=== PATIENT | male | born 1975 | race Caucasian/White ===

== ENCOUNTER 2023-02-18 22:10 | Emergency (ER) | payer BC ==
[2023-02-18 22:29] VITALS: BP 124/92
[2023-02-18 22:47] VITALS: PULSE 201
[2023-02-18] MEDS ORDERED: Adenosine 6 MG/2 ML SDV IVPUSH STA (22:55)
[2023-02-18 23:03] LABS: BASOPHILS ABSOLUTE AUTO 0.04 K/mm3 (0.01-0.08); BASOPHILS PERCENT AUTO 0.4 % (0.1-1.2); EOSINOPHILS ABSOLUTE AUTO 0.11 K/mm3 (0.04-0.54); HEMOGLOBIN 16.3 gm/dl (13.7-17.5); IMMATURE GRAN ABSOLUTE AUTO 0.03 K/mm3 (0.00-0.10); IMMATURE GRAN PERCENT AUTO 0.3 % (<=1.0); LYMPHOCYTES ABSOLUTE AUTO 3.51 K/mm3 (1.32-3.57); LYMPHOCYTES PERCENT AUTO 30.8 % (21.8-53.1); MEAN CORPUSCULAR HEMOGLOBIN 30.5 pg (25.7-32.2); MEAN CORPUSCULAR HGB CONC 34.7 g/dl (32.2-35.5); MEAN PLATELET VOLUME 10.6 fl (9.4-12.3); MONOCYTES ABSOLUTE AUTO 1.44 K/mm3 (0.30-0.82); MONOCYTES PERCENT AUTO 12.6 % (5.3-12.2); NEUTROPHILS ABSOLUTE AUTO 6.26 K/mm3 (1.78-5.38); NEUTROPHILS PERCENT AUTO 54.9 % (34.0-67.9); PLATELET COUNT,PLT 292 K/mm3 (163-337); RED BLOOD CELL COUNT 5.34 M/mm3 (4.63-6.08); WHITE BLOOD CELL COUNT,WBC 11.39 K/mm3 (4.23-9.07)
[2023-02-18 23:21] LABS: INR 0.98; PROTHROMBIN TIME 10.5 SECONDS (9.7-12.0)
[2023-02-18 23:22] LABS: D-DIMER QUANTITATIVE 0.2 mg/L (0.19-0.50)
[2023-02-18 23:31] LABS: ALBUMIN 3.8 g/dl (3.4-5.0); ANION GAP 18.8 (5-15); BILIRUBIN TOTAL 0.4 mg/dL (0.2-1.0); CALCIUM 9.5 mg/dL (8.5-10.1); EST CRCL DRUG DOSING (CG) 99.35 mL/min; MAGNESIUM 1.5 mg/dL (1.8-2.4); POTASSIUM,K 3.8 mEq/L (3.5-5.1); PROTEIN TOTAL,TP 7.6 g/dl (6.4-8.2)
[2023-02-18] MEDS ORDERED: Metoprolol Succinate 25 MG Tab.ER PO ONE (23:47)
== END 2023-02-19 00:25 | disposition home or self-care (01) ==
LOC: JD.ED 22:10
DX: I47.1 Supraventricular tachycardia (principal); E11.65 Type 2 diabetes mellitus with hyperglycemia; E83.42 Hypomagnesemia; E78.00 Pure hypercholesterolemia, unspecified; I10 Essential (primary) hypertension; E66.9 Obesity, unspecified; Z68.42 Body mass index [BMI] 45.0-49.9, adult; Z86.16 Personal history of COVID-19; Z87.891 Personal history of nicotine dependence
CPT/HCPCS: 36415; 71045; 80053; 83735; 83880; 84484; 85025; 85379; 85610; 85730; 96374; 99285; J0153; 93010; 99284

== ENCOUNTER 2024-02-04 11:32 | Emergency (ER) | payer BC ==
[2024-02-04] MEDS ORDERED: Sodium Chloride 0.9% 10 ML Syringe FLUSH PRN (12:52)
[2024-02-04] MEDS: Sodium Chloride 0.9% 10 ML Syringe FLUSH ONE (13:19)
[2024-02-04] MEDS: Iopamidol 612 MG/ML 100 ML Bottle IVPUSH ONE (13:19)
[2024-02-04 13:48] LABS: BASOPHILS PERCENT AUTO 0.5 % (0.0-1.0); EOSINOPHILS ABSOLUTE AUTO 0.1 K/mm3 (0.0-0.4); EOSINOPHILS PERCENT AUTO 1.5 % (0.0-6.0); HEMATOCRIT 42.2 % (42.0-52.0); HEMOGLOBIN 14.4 gm/dl (14.0-18.0); IMMATURE GRAN ABSOLUTE AUTO 0.04 K/mm3 (0.00-0.05); IMMATURE GRAN PERCENT AUTO 0.5 % (0.0-0.4); LYMPHOCYTES PERCENT AUTO 25.7 % (24.0-44.0); MEAN CORPUSCULAR HEMOGLOBIN 29.9 pg (28.0-32.0); MEAN CORPUSCULAR HGB CONC 34.1 g/dl (32.0-36.0); MEAN CORPUSCULAR VOLUME 87.6 fl (83.0-99.0); MEAN PLATELET VOLUME 10.3 fl (9.4-12.4); MONOCYTES ABSOLUTE AUTO 0.8 K/mm3 (0.0-0.8); MONOCYTES PERCENT AUTO 10.6 % (0.0-8.0); NEUTROPHILS ABSOLUTE AUTO 4.7 K/mm3 (1.8-7.7); NEUTROPHILS PERCENT AUTO 61.2 % (41.0-71.0); PLATELET COUNT,PLT 227 K/mm3 (150-400); RED BLOOD CELL COUNT 4.82 M/mm3 (4.52-5.90); WHITE BLOOD CELL COUNT,WBC 7.75 K/mm3 (3.9-11.3)
[2024-02-04 14:08] LABS: A/G RATIO 1.1 (1-2); ALBUMIN 3.6 g/dl (3.4-5.0); ANION GAP 12.7 (5-15); BILIRUBIN TOTAL 0.3 mg/dL (0.2-1.0); CALCIUM 8.9 mg/dL (8.5-10.1); EST CRCL DRUG DOSING (CG) 98.31 mL/min; POTASSIUM,K 3.7 mEq/L (3.5-5.1); PROTEIN TOTAL,TP 6.9 g/dl (6.4-8.2)
[2024-02-04 14:10] LABS: LACTIC ACID 1.5 mmol/L (0.4-2.0)
[2024-02-04 16:59] VITALS: BP 115/71; PULSE 90
== END 2024-02-04 14:50 | disposition home or self-care (01) ==
LOC: JD.ED 11:32
DX: K62.5 Hemorrhage of anus and rectum (principal); I10 Essential (primary) hypertension; E78.00 Pure hypercholesterolemia, unspecified; E11.9 Type 2 diabetes mellitus without complications; E66.9 Obesity, unspecified; Z68.42 Body mass index [BMI] 45.0-49.9, adult; Z86.16 Personal history of COVID-19; Z79.899 Other long term (current) drug therapy; Z79.82 Long term (current) use of aspirin
CPT/HCPCS: 36415; 74177; 80053; 83605; 83690; 85025; 93005; 99284; J3490; Q9967; 93010

== ENCOUNTER → 2024-05-18 | Day surgery (SDC) | payer BC ==
[~2024-05-18] MED LIST: Ketorolac 15 MG/ML SDV ONE; Lidocaine 1% 4 ML ONE; Lidocaine 1% PF 2 ML SDV ONE; Propofol 200 MG/20 ML SDV ONE; Sodium Chloride 0.9% 10 ML Syringe FLUSH PRN; Sodium Chloride 0.9% 10 ML Syringe FLUSH SCH
[2024-05-18] MEDS: Lactated Ringers 1,000 ML IV SCH (11:00)
[2024-05-18] MEDS: Bupivacaine 0.5% 30 ML SDV ONE (14:28)
[2024-05-18 14:30] VITALS: BP 116/64; PULSE 97
== END | disposition home or self-care (01) ==
LOC: JD.SDS 10:28
PROVIDERS: ATTEND Surgery
DX: K29.51 Unspecified chronic gastritis with bleeding (principal); B96.81 Helicobacter pylori [H. pylori] as the cause of diseases classified elsewhere; K21.01 Gastro-esophageal reflux disease with esophagitis, with bleeding; K22.70 Barrett's esophagus without dysplasia; K31.89 Other diseases of stomach and duodenum; K57.30 Diverticulosis of large intestine without perforation or abscess without bleeding; K64.8 Other hemorrhoids; K64.4 Residual hemorrhoidal skin tags; E11.9 Type 2 diabetes mellitus without complications; I10 Essential (primary) hypertension; E78.5 Hyperlipidemia, unspecified; F17.220 Nicotine dependence, chewing tobacco, uncomplicated; Z79.82 Long term (current) use of aspirin; Z79.84 Long term (current) use of oral hypoglycemic drugs; Z79.899 Other long term (current) drug therapy
CPT/HCPCS: 43239; 45378; 46221; J0665; J1885; J2704; J7120; 00813; J3490